=== PATIENT | female | born 1970 | race Caucasian/White ===

== ENCOUNTER 2018-12-24 13:40 | Inpatient (IN) | payer OTHER ==
[~2018-12-24] VITALS: Ht 172.7 cm; Wt 136.7 kg
[2018-12-24 14:15] VITALS: BP 145/105
[2018-12-24 14:42] LABS: BACTERIA,URINE 0 /HPF (0-FEW); BILIRUBIN,URINE NEG (NEG); CLARITY,URINE HAZY; COLOR,URINE YELLOW; GLUCOSE,URINE NEG (NEG); NITRITE,URINE NEG (NEG); UROBILINOGEN,URINE 0.2 mg/dL (0.2 mg/dL)
[2018-12-24 14:43] LABS: SQUAMOUS EPITHELIAL CELL,UR FEW /LPF
[2018-12-24] MEDS ORDERED: METO50TA29 PO (14:53)
[2018-12-24] MEDS ORDERED: CHOL2000 PO (14:53)
[2018-12-24] MEDS ORDERED: FLUT9.9S NS (14:53)
[2018-12-24] MEDS ORDERED: ALBU2.5V8 INH (14:53)
[2018-12-24] MEDS ORDERED: TAMO20TA PO (14:53)
[2018-12-24] MEDS ORDERED: CETI10TA22 PO (14:53)
[2018-12-24 15:04] LABS: INFLUENZA A PATIENT NEGATIVE (NEGATIVE); INFLUENZA B PATIENT NEGATIVE (NEGATIVE)
--- NOTE | 2018-12-24 15:17 | RAD ---
EXAM: Chest, 2 views. HISTORY: Abnormal EKG. COMPARISON: None. FINDINGS: 2 views of the chest are obtained. There is no infiltrate, pleural effusion or pneumothorax. There is a prominent cardiac silhouette. There are implanted breast prostheses. There is a gastric lap band partially included on the tzfxw-oa-dtou. IMPRESSION: 1. Prominent cardiac silhouette. 2. No acute pulmonary finding. Electronically signed by: Heather Carey MD (12/24/2018 3:14 PM) [place] [id number]
--- NOTE | 2018-12-24 15:29 | RAD ---
CT of the chest without contrast 12/24/2018 INDICATION: Congestive heart failure COMPARISON STUDY: Chest radiograph, earlier today TECHNIQUE: Multidetector CT of the chest was performed without contrast FINDINGS: The heart is enlarged. No significant pericardial effusion is identified. Scattered small mediastinal lymph nodes are noted, nonspecific in appearance. Limited visualization of the upper abdomen demonstrates prior cholecystectomy changes of the lap band placement. Multiple rounded densities in the splenic hilum likely reflect accessory spleens or splenules. There is no pneumothorax, or pleural effusion. No focal consolidative infiltrate is seen. Subtle intralobular septal thickening appears to be present. Findings could represent very mild congestive changes. No significant groundglass edema or pleural effusion is seen. No acute osseous changes are identified. Bilateral breast implants noted. Linear densities within the implants are seen, more so on the right. CT is significantly limited for evaluation. Intracapsular rupture is difficult to exclude. MRI offers more sensitive evaluation as clinically indicated. IMPRESSION: 1. Cardiomegaly 2. Subtle intralobular septal thickening. Very mild congestive changes are possible. Correlation echocardiography. 3. Other chronic changes as above CT DOSING PQRS STATEMENT: One or more of the following individualized dose reduction techniques were utilized for this examination: 1. Automated exposure control 2. Adjustment of the mA and/or kV according to patient size 3. Use of iterative reconstruction technique Electronically signed by: Carlos Eduardo Huang MD (12/24/2018 3:26 PM) [id number]
[2018-12-24] MEDS ORDERED: ONDANSETRON ODT 4 MG TAB.RAPDIS ONE (16:03)
[2018-12-24 16:26] LABS: BASO % 0 % (0-3); EOS # 0.1 x10^3/uL (0.0-0.7); EOS % 1 % (0-3); HEMATOCRIT 42.2 % (36.0-47.0); HEMOGLOBIN 13.8 g/dL (12.0-15.5); LYMPH # 2.2 x10^3/uL (1.0-4.8); LYMPH % 32 % (24-48); MEAN CORPUSCULAR HEMOGLOBIN 29 pg (25-35); MEAN CORPUSCULAR HGB CONC 33 g/dL (31-37); MEAN CORPUSCULAR VOLUME 89 fL (79-100); MONO # 0.4 x10^3/uL (0.0-1.1); MONO % 6 % (0-9); NEUT # 4.4 x10^3uL (1.8-7.7); NEUT % 61 % (31-73); PLATELET COUNT 255 x10^3/uL (140-400); RED BLOOD COUNT 4.73 x10^6/uL (3.50-5.40); RED CELL DISTRIBUTION WIDTH 14.2 % (11.5-14.5); WHITE BLOOD COUNT 7.2 x10^3/uL (4.0-11.0)
--- NOTE | 2018-12-24 16:27 | EKG ---
[address] [address] Test Date: 2018-12-24 Test Time: 14:47:00 Pat Name: LISSETT ASHBY Department: Room: 111 A Gender: F Verification Clerk: ALDO : 1970 Requested By: RAMAKRISHNA BACA Order Number: [id number] Reading MD: Measurements Intervals [place] Rate: 95 P: 59 [place]: 146 QRS: -7 QRSD: 134 T: 68 QT: 402 QTc: 509 Interpretive Statements SINUS RHYTHM LEFTWARD AXIS NON SPECIFIC INTRAVENTRICULAR BLOCK ABNORMAL ECG RI6.02 No previous ECG available for comparison
[2018-12-24 16:41] LABS: ALBUMIN 3.4 g/dL (3.4-5.0); ALBUMIN/GLOBULIN RATIO 0.9 (1.0-1.7); CALCIUM 8.8 mg/dL (8.5-10.1); CREATININE 1.1 mg/dL (0.6-1.0); GFR 52.8; POTASSIUM 3.9 mmol/L (3.5-5.1); TOTAL BILIRUBIN 0.6 mg/dL (0.2-1.0)
[2018-12-24] MEDS: FUROSEMIDE 40 MG/4 ML VIAL IVP SCH (17:06)
[2018-12-24] MEDS ORDERED: ONDANSETRON PF 4 MG/2 ML VIAL. IVP PRN (17:30)
[2018-12-24] MEDS ORDERED: ONDANSETRON ODT 4 MG TAB.RAPDIS PO PRN (17:30)
[2018-12-24] MEDS: ACETAMINOPHEN 325 MG TABLET PO PRN (18:24)
[2018-12-24] MEDS ORDERED: ALBUTEROL SULFATE 2.5 MG/3 ML NEBU. NEB PRN (18:30)
[2018-12-24] MEDS ORDERED: ALBUTEROL SULFATE 2.5 MG/3 ML NEBU. INH PRN (18:30)
[2018-12-24 19:49] VITALS: BP 128/97
[2018-12-24 22:48] VITALS: BP 122/88
[2018-12-25 05:24] VITALS: BP 128/84
[2018-12-25] MEDS ORDERED: ASPIRIN 81 MG TAB.CHEW PO SCH (08:00)
[2018-12-25] MEDS: ACETAMINOPHEN 325 MG TABLET PO PRN (08:08)
[2018-12-25] MEDS: FUROSEMIDE 40 MG/4 ML VIAL IVP SCH (08:09)
--- NOTE | 2018-12-25 08:22 | PDOC2 ---
BELKIS VALVERDE TRAVEL MED SURG RN 12/25/18 0821: CARDIAC CONSULT DATE OF CONSULT Date Of Consult DATE: 12/25/18 TIME: 08:20 REASON FOR CONSULT Reason for Consult Abnormal EKG REFERRING PHYSICIAN Referring Physician Dr. Weiss SOURCE Source: Chart review, Patient HPI History of Present Illness This is a 48 yo female, with a history of hypertension and breast CA s/p chemotherapy, who presented with 2 week history of non-productive cough at HS and G[facility]. Has also had some mild LE edema. No chest pain, palpitations, dizziness, diaphoresis, or nausea/vomiting. No recent illness/fevers. No recent life changes or significantly increased stressors at home recently. PAST MEDICAL HISTORY Cardiovascular: HTN Heme/Onc: Cancer (breast ) PAST SURGICAL HISTORY Past Surgical History: Cholecystectomy FAMILY HISTORY Family History: Diabetes, Heart Disease (mother CMP following "virus"), Hypertension SOCIAL HISTORY Smoke: No ALCOHOL: none Drugs: None Lives: with Family CURRENT MEDICATIONS Current Medications Current Medications Influenza Virus Vaccine Quadrival (Afluria Quad 2019-20 (3yr Up) Syringe) 0.5 ml ONCE ONCE VAX IM ; Start 12/25/18 at 09:00; Stop 12/25/18 at 09:01 Furosemide (Lasix) 40 mg DAILY IVP Last administered on 12/25/18at 08:09; Start 12/24/18 at 15:45 Aspirin (Children'S Aspirin) 81 mg DAILYWBKFT PO Last administered on 12/25/18at 08:08; Start 12/25/18 at 08:00 Acetaminophen (Tylenol) 650 mg PRN Q8HRS PRN PO FEVER OR PAIN Last administered on 12/25/18at 08:08; Start 12/24/18 at 15:45 Ondansetron HCl (Zofran Odt) 4 mg STK-MED ONCE .ROUTE ; Start 12/24/18 at 16:03; Stop 12/24/18 at 16:04; Status DC Ondansetron HCl (Zofran Odt) 4 mg PRN Q8HRS PRN PO MILD NAUSEA/VOMITING Last administered on 12/24/18at 17:00; Start 12/24/18 at 17:30 Ondansetron HCl (Zofran) 4 mg PRN Q6HRS PRN IVP MOD- SEVERE NAUSEA/VOMITING; Start 12/24/18 at 17:30 Albuterol Sulfate (Ventolin) 6.7 mg PRN Q4HRS PRN INH FOR ASTHMA; Start 12/24/18 at 18:30; Stop 12/24/18 at 18:36; Status DC Cetirizine HCl (ZyrTEC) 10 mg DAILY PO Last administered on 12/25/18at 08:09; Start 12/25/18 at 09:00 Metoprolol Succinate (Toprol Xl) 50 mg DAILY PO Last administered on 12/25/18at 08:08; Start 12/25/18 at 09:00 Vitamin D (Vitamin D3) 4,000 unit DAILY PO Last administered on 12/25/18at 08:08; Start 12/25/18 at 09:00 Fluticasone Propionate (Flonase) 2 spray DAILY NS Last administered on 12/25/18at 08:09; Start 12/25/18 at 09:00 Tamoxifen Citrate (Nolvadex) 20 mg DAILY PO ; Start 12/25/18 at 09:00 Albuterol Sulfate (Ventolin) 2.5 mg PRN Q4HRS PRN NEB SHORTNESS OF BREATH; Start 12/24/18 at 18:30 Active Scripts Active Reported Flonase Allergy Relief (Fluticasone Propionate) 9.9 Ml Grandy.susp 2 Sprays NS DAILY Zyrtec (Cetirizine Hcl) 10 Mg Tablet 1 Tab PO DAILY Proventil Hfa Inhaler (Albuterol Sulfate) 6.7 Gm Hfa.aer.ad 1 Puff INH PRN Q4HRS PRN Tamoxifen Citrate 20 Mg Tablet 1 Tab PO DAILY 30 Days Metoprolol Succinate ( Xl ) (Metoprolol Succinate) 50 Mg Tab.er.24h 1 Tab PO DAILY Vitamin D (Cholecalciferol (Vitamin D3)) 2,000 Unit Capsule 5 Cap PO DAILY ALLERGIES Allergies: Coded Allergies: Sulfa (Sulfonamide Antibiotics) (Verified Allergy, Severe, 12/24/18) HIVES ROS Review of Systems 14 point ROS conducted with pertinent positives noted above in HPI PHYSICAL EXAM General: Alert, Oriented X3, Cooperative, No acute distress HEENT: Mucous membr. moist/pink Lungs: Clear to auscultation, Other (diminished bases) Heart: Regular rate, Normal S1, Normal S2 Abdomen: Soft, No tenderness Extremities: Other (trace bilateral LE edema ) Skin: No rashes, No breakdown Neuro: Normal speech, Sensation intact Psych/Mental Status: Mental status NL, Mood NL MUSCULOSKELETAL: No deformity VITALS Vital Signs Vital Signs Date Time Temp Pulse Resp B/P (MAP) Pulse Ox O2 Delivery O2 Flow Rate FiO2 12/25/18 08:08 79 128/84 12/25/18 05:24 97.5 16 97 Room Air LABS LABS Laboratory Tests Test 12/24/18 14:10 12/24/18 14:27 12/24/18 14:30 12/24/18 16:10 Urine Collection Type Unknown Urine Color Yellow Urine Clarity Hazy Urine pH 5.0 Urine Specific [place] 1.020 Urine Protein Neg (NEG-TRACE) Urine Glucose (UA) Neg mg/dL (NEG) Urine Ketones (Stick) Neg mg/dL (NEG) Urine Blood Neg (NEG) Urine Nitrite Neg (NEG) Urine Bilirubin Neg (NEG) Urine Urobilinogen Dipstick 0.2 mg/dL (0.2 mg/dL) Urine Leukocyte Esterase Trace (NEG) Urine RBC 1-2 /HPF (0-2) Urine WBC 5-10 /HPF (0-4) Urine Squamous Epithelial Cells Few /LPF Urine Transitional Epithelial Cells Few /LPF Urine Bacteria 0 /HPF (0-FEW) Urine Mucus Slight /LPF Influenza Type A (Rapid) Negative (NEGATIVE) Influenza Type B (Rapid) Negative (NEGATIVE) Troponin I Quantitative < 0.017 ng/mL (0-0.055) White Blood Count 7.2 x10^3/uL (4.0-11.0) Red Blood Count 4.73 x10^6/uL (3.50-5.40) Hemoglobin 13.8 g/dL (12.0-15.5) Hematocrit 42.2 % (36.0-47.0) Mean Corpuscular Volume 89 fL (79-100) Mean Corpuscular Hemoglobin 29 pg (25-35) Mean Corpuscular Hemoglobin Concent 33 g/dL (31-37) Red Cell Distribution Width 14.2 % (11.5-14.5) Platelet Count 255 x10^3/uL (140-400) Neutrophils (%) (Auto) 61 % (31-73) Lymphocytes (%) (Auto) 32 % (24-48) Monocytes (%) (Auto) 6 % (0-9) Eosinophils (%) (Auto) 1 % (0-3) Basophils (%) (Auto) 0 % (0-3) Neutrophils # (Auto) 4.4 x10^3uL (1.8-7.7) Lymphocytes # (Auto) 2.2 x10^3/uL (1.0-4.8) Monocytes # (Auto) 0.4 x10^3/uL (0.0-1.1) Eosinophils # (Auto) 0.1 x10^3/uL (0.0-0.7) Basophils # (Auto) 0.0 x10^3/uL (0.0-0.2) D-Dimer (Marylin) 0.50 mg/L (0.00-0.50) Sodium Level 142 mmol/L (136-145) Potassium Level 3.9 mmol/L (3.5-5.1) Chloride Level 107 mmol/L (98-107) Carbon Dioxide Level 25 mmol/L (21-32) Anion Gap 10 (6-14) Blood Urea Nitrogen 16 mg/dL (7-20) Creatinine 1.1 mg/dL (0.6-1.0) Estimated GFR (Cockcroft-Gault) 52.8 BUN/Creatinine Ratio 15 (6-20) Glucose Level 131 mg/dL (70-99) Calcium Level 8.8 mg/dL (8.5-10.1) Total Bilirubin 0.6 mg/dL (0.2-1.0) Aspartate Amino Transf (AST/SGOT) 15 U/L (15-37) Alanine Aminotransferase (ALT/SGPT) 19 U/L (14-59) Alkaline Phosphatase 58 U/L (46-116) Creatine Kinase 51 U/L (26-192) MW-Rdc-T-Type Natriuretic Peptide 2681 pg/mL (0-124) Total Protein 7.0 g/dL (6.4-8.2) Albumin 3.4 g/dL (3.4-5.0) Albumin/Globulin Ratio 0.9 (1.0-1.7) ECHOCARDIOGRAM Echocardiogram <Conclusion> The left ventricular systolic function is severely impaired. The Ejection Fraction is 20%. Trace to mild mitral regurgitation. Mild tricuspid regurgitation with an estimated PAP of 77 mmHg. There is no evidence of significant pericardial effusion. DATE: 12/24/18 1726 ASSESSMENT/PLAN Assessment/Plan 1. Acute systolic heart failure 2. Cardiomyopathy, new finding. LVEF 20% 3. LBBB; no previous EKG for comparison 4. Hypertension; controlled 5. Pulm HTN; PAP 77 mmHg 6. H/o breast CA s/p chemotherapy Recommendations Diuresis HF optimization. Continue Toprol. Start Entresto ASA Lipid panel Will need further ischemic evaluation given new CMP finding Supportive care TEDDY IGNACIO MD 12/25/18 1643: CARDIAC CONSULT ASSESSMENT/PLAN Assessment/Plan Pt. seen and examined. AGree with above [employer] note. 48 y.o woman presenting with new cardiomyopathy and pulmonary HTN We discussed possible etiologies including viral cardiomyopathy, uncontrolled HTN, breast cancer chemo, uncontrolled ROSIE and obesity Plan for transfer to [place] for R/LHC and further assessment of etiology of CMP Will continue toprol and entresto. Will plan for aldactone upon discharge Discussed r/b/a of cath versus non-invasive testing, patient wishes to proceed with cath. Discussed with as well. Thanks for consultation. BELKIS VALVERDE APRN Dec 25, 2018 08:21 TEDDY IGNACIO MD Dec 25, 2018 16:43
--- NOTE | 2018-12-25 08:29 | CARD ---
MR#: [id number] Date of Study: 12/24/2018 Ordering Physician: RAMAKRISHNA BACA, Referring Physician: RAMAKRISHNA BACA, Tech: Selina Valadez APPROVED REPORT EXAM: Two-dimensional and M-mode echocardiogram with Doppler and color Doppler. Other Information Quality : AverageHR: 98bpm Technically limited study due to body habitus. INDICATION Congestive Heart Failure 2D DIMENSIONS Left Atrium(2D)3.6 (1.6-4.0cm)IVSd1.3 (0.7-1.1cm) Aortic Root(2D)3.1 (2.0-3.7cm)LVDd6.0 (3.9-5.9cm) LVOT Diameter2.2 (1.8-2.4cm)PWd1.0 (0.7-1.1cm) LVDs4.6 (2.5-4.0cm)FS (%) 23.0 % SV80.6 ml Aortic Valve AoV Peak Hakan.133.5cm/sAoV VTI24.2cm AO Peak GR.7.1mmHgLVOT Peak Hakan.69.5cm/s LVOT VTI 11.85cmAO Mean GR.5mmHg WILFRIDO (VMAX)1.74lg8FEX (VTI)1.85cm2 Mitral Valve MV E Peak Gr.79mmHgMV E Mean Gr.4mmHg Pulmonary Valve PV Peak Iigsniry20.5cm/sPV Peak Grad.3mmHg Tricuspid Valve TR P. Nljhccpx665vv/sRAP NVJIWZSZ44kpWf TR Peak Gr.86edKfRMFR99ptOc LEFT VENTRICLE The Left Ventricle is moderately dilated. There is mild to moderate concentric left ventricular hyper trophy. The left ventricular systolic function is severely impaired. The Ejection Fraction is 20%. Th ere is severe global hypokinesis of the left ventricle. RIGHT VENTRICLE The right ventricle is normal size. There is normal right ventricular wall thickness. The right ventr icular systolic function is normal. ATRIA The left atrium is mildly dilated. The right atrium is borderline dilated. The interatrial septum is intact with no evidence for an atrial septal defect or patent foramen ovale as noted on 2-D or Dopple r imaging. AORTIC VALVE The aortic valve is normal in structure and function. Doppler and Color Flow revealed no significant aortic regurgitation. There is no significant aortic valvular stenosis. MITRAL VALVE The mitral valve is normal in structure and function. There is no evidence of mitral valve prolapse. There is no mitral valve stenosis. Doppler and Color-flow revealed trace to mild mitral regurgitation . TRICUSPID VALVE The tricuspid valve is normal in structure and function. Doppler and Color Flow revealed mild tricusp id regurgitation with an estimated PAP of 77 mmHg. There is no tricuspid valve stenosis. PULMONIC VALVE The pulmonic valve is not well visualized. Doppler and Color Flow revealed no pulmonic valvular regur gitation. GREAT VESSELS The aortic root is normal in size. The IVC is dilated and collapsing <50%. PERICARDIAL EFFUSION There is no evidence of significant pericardial effusion. Critical Notification Physician Notified Critical Value: No <Conclusion> The left ventricular systolic function is severely impaired. The Ejection Fraction is 20%. Trace to mild mitral regurgitation. Mild tricuspid regurgitation with an estimated PAP of 77 mmHg. There is no evidence of significant pericardial effusion. Signed by : Brett Ferrair, Electronically Approved : 12/25/2018 08:28:59
[2018-12-25] MEDS ORDERED: FLU VAX QS 2019-20 (36MOS+)/PF 0.5 ML SYRINGE. VAX IM ONE (09:00)
[2018-12-25] MEDS ORDERED: SACUBITRIL/VALSARTAN 24/26MG TABLET. PO SCH (09:00)
[2018-12-25] MEDS ORDERED: METOPROLOL SUCC 24HR ER 50 MG TAB.ER.24H. PO SCH (09:00)
[2018-12-25] MEDS ORDERED: TAMOXIFEN 10 MG TABLET PO SCH (09:00)
[2018-12-25] MEDS ORDERED: FLUTICASONE 50MCG/NASAL SPRAY 16GM BOTTLE. NS SCH (09:00)
[2018-12-25] MEDS ORDERED: CETIRIZINE HCL 10 MG TABLET PO SCH (09:00)
[2018-12-25] MEDS ORDERED: CHOLECALCIFEROL (VITAMIN D3) 1,000 UNIT TABLET PO SCH (09:00)
[2018-12-25 11:34] VITALS: BP 127/84
[2018-12-25 14:56] VITALS: BP 116/80
[2018-12-25 19:35] VITALS: BP 110/76
--- NOTE | 2018-12-28 20:05 | DS ---
DATE OF DISCHARGE: 12/25/2018 HOSPITAL COURSE: A 48-year-old female with history of breast cancer, came in through the office was seen there and transferred to the hospital because of increased shortness of breath. It was felt the patient had congestive heart failure, which is new onset for her. Her ejection fraction was 20% when the echo was done there at the hospital. The patient in turn was seen by Cardiology. They recommended the patient be transferred down to [place] for which she was done. She was given Lasix and metoprolol in the usual fashion per Cardiology consultation. The patient also was started on Entresto . In any case, the patient's CT of the chest that shows some interlobular thickening and congestive heart failure as noted the echo showed 20% ejection fraction. The patient was also seen by Cardiology and recommendation of there is to be transferred was undertaken and she was seen down there later that day. She was transferred via EMS, history of hypertension and breast cancer. She has also had a history of chemotherapy. She denied any chest pain, palpitations, dizziness or diaphoresis. The patient was transferred without any complication. IMPRESSION: Acute congestive heart failure, that of dyspnea, cardiomyopathy, history of breast cancer with previous chemotherapy, chronic kidney disease stage 3, hypercholesterolemia with low HDL of 28, hyperglycemia. PLAN: The patient will be on a heart healthy diet, decreased activity. She was transferred via EMS to Dr. Ferrari service or to the hospitalist corrections corporal for [facility]. RAMAKRISHNA BACA MD DR: BETTY/sara JOB#: [id number] / [id number]
== END 2018-12-25 19:49 | disposition short-term general hospital (02) | DRG 291 ==
LOC: 1 SOUTH 13:40
PROVIDERS: ADMIT Family Medicine; ATTEND Family Medicine
DX: I13.0 Hypertensive heart and chronic kidney disease with heart failure and stage 1 through stage 4 chronic kidney disease, or unspecified chronic kidney disease (principal); I50.21 Acute systolic (congestive) heart failure; I42.9 Cardiomyopathy, unspecified; I27.20 Pulmonary hypertension, unspecified; I44.7 Left bundle-branch block, unspecified; Z92.21 Personal history of antineoplastic chemotherapy; Z85.3 Personal history of malignant neoplasm of breast; Z90.49 Acquired absence of other specified parts of digestive tract; Z83.3 Family history of diabetes mellitus; Z82.49 Family history of ischemic heart disease and other diseases of the circulatory system; Z88.2 Allergy status to sulfonamides; Z90.13 Acquired absence of bilateral breasts and nipples; N18.3 Chronic kidney disease, stage 3 (moderate); E78.00 Pure hypercholesterolemia, unspecified
CPT/HCPCS: 36415; 71046; 71250; 80053; 80061; 81001; 82550; 83880; 84484; 85025; 85379; 87086; 87804; 90471; 90686; 93005; 93306; J1940; Q0162

== ENCOUNTER → 2019-01-08 | Outpatient (CLI) | payer OTHER ==
[2018-12-25 19:35] VITALS: BP 110/76
[~2019-01-08] MED LIST: ALBU2.5V8 INH; CETI10TA22 PO; CHOL2000 PO; FLUT9.9S NS; METO50TA29 PO; TAMO20TA PO
== END | disposition home or self-care (01) ==
LOC: LAB 08:03
PROVIDERS: ATTEND Family Medicine
DX: E87.5 Hyperkalemia (principal)
CPT/HCPCS: 36415; 84132

== ENCOUNTER → 2019-03-11 | Outpatient (CLI) | payer OTHER ==
[~2019-03-11] MED LIST changes: -CETI10TA22 PO; +CETI10TA24 PO
--- NOTE | 2019-03-11 13:52 | CARD ---
MR#: [id number] Date of Study: 03/11/2019 Ordering Physician: TEDDY IGNACIO, Referring Physician: TEDDY IGNACIO, Tech: Sona Goff [facility] APPROVED REPORT EXAM: Two-dimensional and M-mode echocardiogram with Doppler and color Doppler. Other Information Quality : Good Technically limited study due to breast implants INDICATION Non-Ischemic Cardiomyopathy, Life Vest 2D DIMENSIONS RVDd2.1 (2.9-3.5cm)Left Atrium(2D)3.9 (1.6-4.0cm) IVSd0.7 (0.7-1.1cm)Aortic Root(2D)3.0 (2.0-3.7cm) LVDd7.8 (3.9-5.9cm)LVOT Diameter2.1 (1.8-2.4cm) PWd0.7 (0.7-1.1cm)LVDs7.1 (2.5-4.0cm) FS (%) 8.9 %SV60.5 ml LVEF(%)18.8 (>50%) Aortic Valve AoV Peak Hakan.126.4cm/sAoV VTI21.4cm AO Peak GR.6.4mmHgLVOT Peak Hakan.92.8cm/s LVOT VTI 18.41cmAO Mean GR.4mmHg WILFRIDO (VMAX)2.80iy7QXX (VTI)2.91cm2 Mitral Valve MV E Evkosjtj773.2cm/sMV DECEL [id number] MV A Pghsoafx018.4cm/sE/A Ratio0.9 Tricuspid Valve TR P. Rqsufzzf716yq/sRAP RPXKCJEZ5asEa TR Peak Gr.65cwCjXIRI63cuRj Pulmonary Vein S1 Abpfaduu43.0cm/sD2 Seggluzg09.3cm/s LEFT VENTRICLE The Left Ventricle is severely dilated. There is normal left ventricular wall thickness. Left ventric le systolic function is severely impaired. The Ejection Fraction is 15%. There is severe global hypok inesis of the left ventricle. Transmitral Doppler flow pattern is Grade I-abnormal relaxation pattern . There appears to be an immobile, possibly organized, thrombus in apex of left ventricle. RIGHT VENTRICLE The right ventricle is normal size. The right ventricular systolic function is normal. ATRIA The left atrium size is normal. The right atrium size is normal. The interatrial septum is intact wit h no evidence for an atrial septal defect or patent foramen ovale as noted on 2-D or Doppler imaging. AORTIC VALVE The aortic valve is normal in structure and function. Doppler and Color Flow revealed no significant aortic regurgitation. There is no significant aortic valvular stenosis. MITRAL VALVE The mitral valve is normal in structure and function. There is no evidence of mitral valve prolapse. There is no mitral valve stenosis. Doppler and Color-flow revealed mild mitral regurgitation. TRICUSPID VALVE The tricuspid valve is normal in structure and function. Doppler and Color Flow revealed no tricuspid valve regurgitation noted. There is no tricuspid valve stenosis. PULMONIC VALVE The pulmonic valve is not well visualized. Doppler and Color Flow revealed trace pulmonic valvular re gurgitation. There is no pulmonic valvular stenosis. GREAT VESSELS The aortic root is normal in size. The ascending aorta is normal in size. The IVC is normal in size a nd collapses >50% with inspiration. PERICARDIAL EFFUSION There is no evidence of significant pericardial effusion. Critical Notification Critical Value: No <Conclusion> Left ventricle systolic function is severely impaired. The Ejection Fraction is 15%. There appears to be an immobile, possibly organized, thrombus in apex of left ventricle. Recommend PAULETTE for definitive evaluation. Transmitral Doppler flow pattern is Grade I-abnormal relaxation pattern. Doppler and Color-flow revealed mild mitral regurgitation. There is no evidence of significant pericardial effusion. Signed by : Brett Ferrari, Electronically Approved : 03/11/2019 13:51:58
== END | disposition home or self-care (01) ==
LOC: ECHO 10:54
PROVIDERS: ATTEND Internal Medicine Cardiovascular Disease
DX: I34.0 Nonrheumatic mitral (valve) insufficiency (principal); I42.8 Other cardiomyopathies
CPT/HCPCS: 93306